=== PATIENT | male | born 1990 | race Hispanic/Latino ===

== ENCOUNTER 2024-08-27 16:52 | Emergency (ER) | payer OTHER ==
[~2024-08-27] VITALS: Ht 172.7 cm; Wt 88.0 kg
[2024-08-27 18:07] VITALS: PULSE 94; RESP 16; TEMP 98.6; O2SAT 100
== END 2024-08-27 18:07 | disposition home or self-care (01) ==
LOC: ER 17:12
DX: K62.89 Other specified diseases of anus and rectum (principal); K64.9 Unspecified hemorrhoids; F17.210 Nicotine dependence, cigarettes, uncomplicated
CPT/HCPCS: 99283